=== PATIENT | male | born 1985 | race Two or more races ===

== ENCOUNTER 2022-08-25 10:06 | Inpatient (IN) | payer MEDICAID, OTHER ==
[~2022-08-25] VITALS: Ht 185.4 cm; Wt 90.7 kg
[2022-08-25] MEDS ORDERED: DESMOPRESSIN ACETATE IVPB 30 MCG in SODIUM CHLORIDE 0.9% 50 ML IV ONE (10:30)
[2022-08-25] MEDS ORDERED: ONDANSETRON 4MG ODT PO ONE (10:30)
[2022-08-25] MEDS ORDERED: MORPHINE SULFATE 10 MG/ML CPJ IM ONE (10:30)
[2022-08-25 10:43] LABS: BASOPHILS % 0.4 % (0.0-2.0); EOSINOPHILS % 2.6 % (0.0-5.0); HEMATOCRIT. 52.2 % (42.0-52.0); HEMOGLOBIN. 17.8 g/dL (14.0-18.0); LYMPHOCYTES % 30.3 % (20.0-50.0); MEAN CORPUSCULAR HEMOGLOBIN 31.4 pg (28.0-32.0); MEAN CORPUSCULAR VOLUME 91.8 fL (80.0-94.0); MEAN PLATELET VOLUME 7.9 fl (7.4-10.4); NEUTROPHILS % 58.7 % (40.0-76.0); PLATELET 266 x1000/uL (130-400); RED BLOOD CELL COUNT 5.69 mill/uL (4.7-6.1); RED CELL DISTRIBUTION WIDTH 15.6 % (11.6-14.6)
[2022-08-25 10:50] LABS: PROTHROMBIN TIME 11.1 sec (9.6-11.0)
[2022-08-25 12:14] LABS: CHLORIDE 107 mEq/L (98-107)
[2022-08-25] MEDS ORDERED: MORPHINE SULFATE 4 MG/ML CPJ (NOT FOR IM USE) IV ONE (14:30)
[2022-08-25] MEDS ORDERED: ACETAMINOPHEN 325MG TABLET PO PRN ×2 (18:00)
[2022-08-25] MEDS ORDERED: ONDANSETRON HCL 4MG/2ML INJ IV PRN (18:00)
[2022-08-25] MEDS ORDERED: HYDROCODONE/ACETAMINOPHEN 5/325MG TABLET PO PRN (18:00)
[2022-08-25] MEDS ORDERED: MAGNESIUM/ALUMINUM HYDROXIDE/SIMETHICONE 30ML UDC PO PRN (18:00)
[2022-08-25] MEDS ORDERED: MAGNESIUM HYDROXIDE 400MG/5ML 30ML UDC PO PRN (18:00)
[2022-08-25] MEDS ORDERED: DIPHENHYDRAMINE 50MG/ML VIAL IV PRN (18:00)
[2022-08-25] MEDS ORDERED: CLONIDINE 0.1MG TABLET PO PRN (18:00)
[2022-08-25] MEDS ORDERED: NALOXONE HCL 0.4MG/ML VIAL IV PRN (18:15)
[2022-08-25] MEDS: KETOROLAC 30MG/ML VIAL IV PRN (18:47)
[2022-08-25 19:00] VITALS: BP 107/59
[2022-08-25 20:00] VITALS: BP 140/76
[2022-08-25] MEDS: SODIUM CHLORIDE 0.9% INJ 3ML FLUSH IVF SCH (22:00)
[2022-08-26] VITALS: BP 103/53
[2022-08-26 04:00] VITALS: BP 123/76
[2022-08-26] MEDS: KETOROLAC 30MG/ML VIAL IV PRN ×2 (04:35→11:48)
[2022-08-26] MEDS: SODIUM CHLORIDE 0.9% INJ 3ML FLUSH IVF SCH (04:42)
[2022-08-26 07:23] LABS: HEMATOCRIT 45.7 % (42.0-52.0); HEMOGLOBIN 15.4 g/dL (14.0-18.0); MEAN CORPUSCULAR HEMOGLOBIN 31.4 pg (28.0-32.0); MEAN CORPUSCULAR VOLUME 93.1 fL (80.0-94.0); PLATELET 205 x1000/uL (130-400); RED BLOOD CELL COUNT 4.91 mill/uL (4.7-6.1); RED CELL DISTRIBUTION WIDTH 15.6 % (11.6-14.6)
[2022-08-26 08:00] VITALS: BP 109/70
[2022-08-26 12:00] VITALS: BP 112/68
[2022-08-26 15:22] VITALS: BP 112/68
== END 2022-08-26 16:40 | disposition home or self-care (01) | DRG 351 ==
LOC: ER 10:06 → EDBEDREQSVC 14:40 → MICUSO 15:22 → EDBEDREQ 15:28 → EDBEDREQTM 15:28 → 6EST 18:27
PROVIDERS: ADMIT Internal Medicine; ATTEND Internal Medicine
DX: M12.9 Arthropathy, unspecified (principal); D66 Hereditary factor VIII deficiency; R26.2 Difficulty in walking, not elsewhere classified
CPT/HCPCS: 36415; 73630; 80053; 82962; 85025; 85027; 85240; 99291; J1885; J2270; J2597; Q0162

== ENCOUNTER 2022-11-20 11:57 | Emergency (ER) | payer OTHER ==
[~2022-11-20] VITALS: Ht 190.5 cm; Wt 130.0 kg
[2022-11-20 12:11] VITALS: BP 143/101
[2022-11-20] MEDS ORDERED: DEXAMETHASONE 4MG TABLET PO ONE (17:30)
== END 2022-11-20 18:55 | disposition left against medical advice (07) ==
LOC: ER 13:33
DX: J02.9 Acute pharyngitis, unspecified (principal); Z98.890 Other specified postprocedural states
CPT/HCPCS: 99281; J8540

== ENCOUNTER 2023-08-13 04:41 | Emergency (ER) | payer OTHER ==
[~2023-08-13] VITALS: Ht 190.5 cm; Wt 130.0 kg
[2023-08-13 04:48] VITALS: BP 141/94; PULSE 80; RESP 16; TEMP 98.2; O2SAT 97
[2023-08-13] MEDS ORDERED: IBUP-2029 MT (05:50)
[2023-08-13] MEDS ORDERED: METH-653 MT (05:50)
== END 2023-08-13 06:12 | disposition home or self-care (01) ==
LOC: ER 04:41
DX: S13.4XXA Sprain of ligaments of cervical spine, initial encounter (principal); F19.90 Other psychoactive substance use, unspecified, uncomplicated; Z20.822 Contact with and (suspected) exposure to COVID-19; V98.8XXA Other specified transport accidents, initial encounter; Y93.89 Activity, other specified; Y92.89 Other specified places as the place of occurrence of the external cause; Y99.8 Other external cause status
CPT/HCPCS: 99283

== ENCOUNTER 2025-08-15 08:19 | Emergency (ER) | payer MEDICAID, OTHER ==
[~2025-08-15] VITALS: Ht 190.5 cm; Wt 127.0 kg
[~2025-08-15 08:19] MED LIST: IBUP-1455 MT; METH-653 MT
[2025-08-15 08:53] LABS: BASOPHILS % 0.6 % (0.0-2.0); EOSINOPHILS % 2.1 % (0.0-5.0); HEMATOCRIT. 49.4 % (42.0-52.0); HEMOGLOBIN. 16.3 g/dL (14.0-18.0); LYMPHOCYTES % 48.3 % (20.0-50.0); MEAN PLATELET VOLUME 8.4 fl (7.4-10.4); MONOCYTES % 9.3 % (2.0-8.0); NEUTROPHILS % 39.7 % (40.0-76.0); PLATELET 207 x1000/uL (130-400); RED BLOOD CELL COUNT 5.47 mill/uL (4.7-6.1); RED CELL DISTRIBUTION WIDTH 17.3 % (11.6-14.6)
[2025-08-15 09:08] LABS: CREATININE 1.0 mg/dL (0.6-1.3)
[2025-08-15 09:09] LABS: PROTEIN TOTAL 6.6 g/dL (6.0-8.3); UREA NITROGEN BLOOD 11 mg/dL (9-23)
[2025-08-15 09:10] LABS: ASPARTATE AMINOTRANSFERASE 43 IU/L (<34); BILIRUBIN DIRECT 0.3 mg/dL (<=3.0); TROPONIN I HIGH SENSITIVITY 5 ng/L (3.0-53)
[2025-08-15 09:11] LABS: BILIRUBIN TOTAL 0.9 mg/dL (0.1-1.0)
[2025-08-15] MEDS ORDERED: IBUP-1455 MT (09:19)
[2025-08-15 09:46] VITALS: BP 135/86; PULSE 69; RESP 18; TEMP 36.8; O2SAT 98
== END 2025-08-15 09:48 | disposition home or self-care (01) ==
LOC: ER 08:19
DX: R07.2 Precordial pain (principal); Z79.899 Other long term (current) drug therapy
CPT/HCPCS: 36415; 71045; 80048; 80076; 83880; 84484; 85025; 93005; 99284